=== PATIENT | male | born 1985 | race Two or more races ===

== ENCOUNTER 2025-03-13 18:49 | Inpatient (IN) | payer MEDICAID ==
[~2025-03-13] VITALS: Ht 175.3 cm; Wt 77.6 kg
[2025-03-13] MEDS ORDERED: KETOROLAC TROMETHAMINE 15 MG/ML VIAL ONE (19:36)
[2025-03-13] MEDS: KETOROLAC TROMETHAMINE 15 MG/ML VIAL IV ONE (19:45)
[2025-03-13] MEDS ORDERED: MORPHINE SULFATE INJ 4 MG/ML DISP.SYRIN ONE (19:59)
[2025-03-13] MEDS: MORPHINE SULFATE INJ 2 MG/ML DISP.SYRIN IV ONE (20:06)
[2025-03-13 20:10] LABS: PLATELET COUNT (AUTO) 173 K/uL (150-450); RED BLOOD CELL COUNT(AUTO) 4.88 MIL/uL (4.5-6.0); RED CELL DISTRIBUTION WIDTH 13.1 % (11.5-15.0); WHITE BLOOD COUNT (AUTO) 9.4 K/uL (4.3-11.0)
[2025-03-13 20:19] LABS: INR 1.0 (0.91-1.10)
[2025-03-13 20:23] LABS: ASPARTATE AMINOTRANSFERASE 22.0 U/L (15-37); CALCIUM, SERUM 8.8 mg/dL (8.5-10.1); CREATININE 0.8 mg/dL (0.6-1.3); SODIUM SERUM 136.0 mmol/L (136-145); TOTAL PROTEIN, SERUM 7.6 g/dL (6.4-8.2); UREA NITROGEN, BLOOD 19.0 mg/dL (7-18)
[2025-03-13] MEDS ORDERED: ONDANSETRON HCL/PF 4 MG/2 ML VIAL IVP PRN (20:30)
[2025-03-13 21:35] VITALS: BP 146/88; TEMP 97.9; O2SAT 97
[2025-03-13 21:40] VITALS: BP 146/88; TEMP 97.9; O2SAT 97
[2025-03-13] MEDS: IV NS 0.9% 1,000 ML IV PRN (22:58)
[2025-03-13] MEDS: TRAZODONE 50 MG TABLET PO PRN (22:58)
[2025-03-14] MEDS: MORPHINE SULFATE INJ 2 MG/ML DISP.SYRIN IV PRN (00:18)
[2025-03-14 06:55] LABS: PLATELET COUNT (AUTO) 160 K/uL (150-450); RED BLOOD CELL COUNT(AUTO) 4.80 MIL/uL (4.5-6.0); RED CELL DISTRIBUTION WIDTH 13.3 % (11.5-15.0); WHITE BLOOD COUNT (AUTO) 7.6 K/uL (4.3-11.0)
[2025-03-14 06:56] LABS: CALCIUM, SERUM 8.4 mg/dL (8.5-10.1); CREATININE 0.8 mg/dL (0.6-1.3); PHOSPHORUS 3.1 mg/dL (2.5-4.9); SODIUM SERUM 139.0 mmol/L (136-145); UREA NITROGEN, BLOOD 14.0 mg/dL (7-18)
[2025-03-14 06:58] LABS: INR 1.05 (0.91-1.10)
[2025-03-14 08:00] VITALS: BP 138/94; TEMP 97.7; O2SAT 97
[2025-03-14] MEDS ORDERED: BUPIVACAINE 0.25% 75 MG/30 ML VIAL ONE (08:20)
[2025-03-14] MEDS ORDERED: ANESTHESIA TRAY IN PYXIS 1 EA TRAY MC ONE (08:20)
[2025-03-14] MEDS ORDERED: FENTANYL PF 100MCG/2ML AMPUL ONE ×2 (08:24→11:37)
[2025-03-14] MEDS ORDERED: LABETALOL 20 MG/4 ML VIAL ONE (08:24)
[2025-03-14] MEDS ORDERED: MIDAZOLAM HCL 2 MG/2ML VIAL ONE (08:25)
[2025-03-14] MEDS ORDERED: VANCOMYCIN 1 GM VIAL ONE (08:36)
[2025-03-14] MEDS ORDERED: TRANEXAMIC ACID 1,000 MG/10 ML VIAL ONE (08:36)
[2025-03-14] MEDS ORDERED: SUGAMMADEX SODIUM 200 MG/2 ML VIAL IV ONE (08:42)
[2025-03-14] MEDS ORDERED: ROCURONIUM BROMIDE 50 MG/5 ML ONE (08:43)
[2025-03-14] MEDS: PANTOPRAZOLE 40 MG VIAL IV SCH (12:38)
[2025-03-14 12:56] VITALS: BP 133/91; TEMP 98.2; O2SAT 97
[2025-03-14 15:59] VITALS: BP 151/89; TEMP 98.1; O2SAT 98
[2025-03-14] MEDS: CEFAZOLIN 2 GM in IV D5W 100 ML IV SCH (16:44)
[2025-03-14 20:00] VITALS: BP 136/86; TEMP 98.2; O2SAT 99
[2025-03-15 06:14] LABS: PLATELET COUNT (AUTO) 162 K/uL (150-450); RED BLOOD CELL COUNT(AUTO) 4.55 MIL/uL (4.5-6.0); RED CELL DISTRIBUTION WIDTH 13.1 % (11.5-15.0); WHITE BLOOD COUNT (AUTO) 10.6 K/uL (4.3-11.0)
[2025-03-15 06:18] LABS: ASPARTATE AMINOTRANSFERASE 23.0 U/L (15-37); CALCIUM, SERUM 8.4 mg/dL (8.5-10.1); CREATININE 0.7 mg/dL (0.6-1.3); PHOSPHORUS 3.1 mg/dL (2.5-4.9); SODIUM SERUM 138.0 mmol/L (136-145); TOTAL PROTEIN, SERUM 7.0 g/dL (6.4-8.2); UREA NITROGEN, BLOOD 10.0 mg/dL (7-18)
[2025-03-15 07:00] VITALS: BP 151/96; TEMP 98.1; O2SAT 98
[2025-03-15] MEDS: MORPHINE SULFATE INJ 4 MG/ML DISP.SYRIN IV PRN ×2 (08:09→11:15)
[2025-03-15] MEDS: ASPIRIN EC 81 MG TABLET.DR PO SCH (08:10)
[2025-03-15] MEDS: HYDROCODONE/APAP 5/325MG TABLET PO PRN (15:46)
[2025-03-15 16:00] VITALS: BP 153/95; TEMP 98.2; O2SAT 97
[2025-03-15 20:00] VITALS: BP_SYST 137; BP_SYST 154; BP_DIAS 103; BP_DIAS 78; TEMP 98.1; O2SAT 96
[2025-03-15] MEDS: MUPIROCIN OINT 2% 22 GM TUBE NS SCH (20:59)
[2025-03-16 08:00] VITALS: BP 140/99; TEMP 98.4; O2SAT 97
[2025-03-16] MEDS: PANTOPRAZOLE 40 MG TABLET.DR PO SCH (09:23)
[2025-03-16] MEDS ORDERED: ASPI-1169 PO (12:01)
[2025-03-16 16:00] VITALS: BP 141/99; TEMP 97.7; O2SAT 98
[2025-03-16 20:00] VITALS: BP 155/95; TEMP 98.8; O2SAT 97
[2025-03-16 20:35] VITALS: BP 155/95; TEMP 98.8; O2SAT 97
[2025-03-17 08:30] VITALS: BP 144/87; TEMP 97.5; O2SAT 99
[2025-03-17 16:00] VITALS: BP 134/89; TEMP 97.5; O2SAT 98
[2025-03-17 20:00] VITALS: BP 142/86; TEMP 98.1; O2SAT 99
[2025-03-17] MEDS: ZOLPIDEM TARTRATE 5 MG TABLET PO PRN (21:45)
[2025-03-18 08:00] VITALS: BP 140/85; TEMP 97.7; O2SAT 100
[2025-03-18 16:00] VITALS: BP 121/75; TEMP 97.7; O2SAT 99
[2025-03-18 20:00] VITALS: BP 129/79; TEMP 98.5; O2SAT 98
[2025-03-19 08:19] VITALS: BP 124/79; TEMP 98.6; O2SAT 97
[2025-03-19 16:11] VITALS: BP 128/62; TEMP 97.7; O2SAT 96
[2025-03-19 20:00] VITALS: BP 124/73; TEMP 98.2; O2SAT 97
[2025-03-20 08:00] VITALS: BP 125/93; TEMP 98.2; O2SAT 99
[2025-03-20 16:00] VITALS: BP 117/84; TEMP 98.8; O2SAT 98
== END 2025-03-20 18:55 | DRG 313 ==
LOC: ER 18:57 → MED 20:29
PROVIDERS: ADMIT Nurse Practitioner Family
PROC: 0QSG06Z Reposition Right Tibia with Intramedullary Internal Fixation Device, Open Approach (ICD-10-PCS; principal; 2025-03-14 09:00)
DX: S82.301A Unspecified fracture of lower end of right tibia, initial encounter for closed fracture (principal); R73.9 Hyperglycemia, unspecified; S82.831A Other fracture of upper and lower end of right fibula, initial encounter for closed fracture; W01.0XXA Fall on same level from slipping, tripping and stumbling without subsequent striking against object, initial encounter; Y99.0 Civilian activity done for income or pay; Z79.82 Long term (current) use of aspirin; Y92.89 Other specified places as the place of occurrence of the external cause
CPT/HCPCS: 36415; 71045-TC; 73560-TC; 73590-TC; 73610-TC; 73620-TC; 73700-TC; 80048-TC; 80053-TC; 83735-TC; 84100-TC; 85025-TC; 85610-TC; 86850-TC; 87081-TC; 97110-TC; 97116-TC; 97530-TC; 97535-TC; A4223; A6209; A6223; A6253; C1713; G0378; J0330; J0690; J1100; J1885; J2250; J2270; J2405; J2470; J2704; J3010; J3373; J3490; J7030; J7060